=== PATIENT | female | born 1995 | race Two or more races ===

== ENCOUNTER → 2021-06-28 | Outpatient (CLI) | payer OTHER ==
[2021-06-28 17:37] LABS: HEMATOCRIT 35.2 % (36.0-47.0); HEMOGLOBIN 11.4 g/dl (12.0-15.5); MEAN CORPUSCULAR HEMOGLOBIN 25.3 pg (27.0-33.0); MEAN CORPUSCULAR HGB CONC 32.4 g/dl (32.0-36.5); MEAN CORPUSCULAR VOLUME 78.2 fl (80.0-96.0); PLATELET COUNT, AUTOMATED 283 10^3/uL (150-450); WHITE BLOOD COUNT 7.3 10^3/uL (4.0-10.0)
[2021-06-28 18:51] LABS: HEPATITIS C VIRUS ABY INDEX 0.1 INDEX (<0.8); HIV 1&2 SCREEN CENTAUR NEGATIVE (NEGATIVE)
[2021-06-28 19:13] LABS: GC DNA AMPLIFICATION NEGATIVE (NEGATIVE)
== END ==
LOC: M PLALAB 15:42
PROVIDERS: ATTEND Advanced Practice Midwife
DX: Z34.81 Encounter for supervision of other normal pregnancy, first trimester (principal)

== ENCOUNTER → 2021-08-31 | Outpatient (CLI) | payer BC, OTHER | LOC: M WHC 13:48 | PROVIDERS: ATTEND Specialist | DX: Z36.2 Encounter for other antenatal screening follow-up (principal); Z3A.19 19 weeks gestation of pregnancy ==

== ENCOUNTER → 2021-09-27 | Outpatient (CLI) | payer BC, OTHER | LOC: M WHC 08:48 | PROVIDERS: ATTEND Specialist | DX: Z36.2 Encounter for other antenatal screening follow-up (principal); Z3A.24 24 weeks gestation of pregnancy ==

== ENCOUNTER → 2021-10-13 | Outpatient (CLI) | payer BC, OTHER | LOC: M WHC 12:56 | PROVIDERS: ATTEND Specialist | DX: Z36.2 Encounter for other antenatal screening follow-up (principal); Z3A.26 26 weeks gestation of pregnancy ==

== ENCOUNTER → 2021-11-10 | Outpatient (CLI) | payer BC, OTHER ==
[2021-11-10 15:54] LABS: HEMATOCRIT 30.9 % (36.0-47.0); MEAN CORPUSCULAR HEMOGLOBIN 27.9 pg (27.0-33.0); MEAN CORPUSCULAR HGB CONC 32.4 g/dl (32.0-36.5); MEAN CORPUSCULAR VOLUME 86.1 fl (80.0-96.0); PLATELET COUNT, AUTOMATED 218 10^3/uL (150-450); RED BLOOD COUNT 3.59 10^6/uL (4.00-5.40); WHITE BLOOD COUNT 10.1 10^3/uL (4.0-10.0)
[2021-11-10 17:00] LABS: GC DNA AMPLIFICATION NEGATIVE (NEGATIVE)
== END ==
LOC: M PLALAB 11-05 07:53
PROVIDERS: ATTEND Specialist
DX: Z34.02 Encounter for supervision of normal first pregnancy, second trimester (principal)

== ENCOUNTER → 2021-11-19 | Outpatient (CLI) | payer BC, OTHER | LOC: M WHC 13:48 | PROVIDERS: ATTEND Obstetrics & Gynecology | DX: Z36.2 Encounter for other antenatal screening follow-up (principal); Z3A.30 30 weeks gestation of pregnancy ==

== ENCOUNTER → 2021-12-17 | Outpatient (REF) | payer BC, OTHER | LOC: M SFHCWAGY 15:12 | PROVIDERS: ATTEND Obstetrics & Gynecology | DX: Z36.85 Encounter for antenatal screening for Streptococcus B (principal) ==

== ENCOUNTER 2022-01-21 13:01 | Inpatient (IN) | payer BC, OTHER ==
[2022-01-21] VITALS (19 sets, daily range): BP systolic 98–167; BP diastolic 54–96
[~2022-01-21] VITALS: Ht 167.6 cm; Wt 88.0 kg
[2022-01-21] MEDS ORDERED: PRENTAB9 PO (15:45)
[2022-01-21] MEDS ORDERED: HOME MED LIST COMPLETE! XX SCH (15:45)
[2022-01-21] MEDS ORDERED: METHYLERGONOVINE MALEATE 0.2 MG/ML VIAL (J2210) IM PRN (16:10)
[2022-01-21] MEDS ORDERED: LIDOCAINE 1% MDV 20ML VIAL INFIL PRN (16:10)
[2022-01-21] MEDS ORDERED: OXYTOCIN DRIP 30 UNITS in IV 1 EA IV PRN (16:10)
[2022-01-21] MEDS ORDERED: TRANEXAMIC ACID INJection 1,000 MG in NS 100 ML IV PRN (16:10)
[2022-01-21 16:36] LABS: HEMATOCRIT 35.8 % (36.0-47.0); HEMOGLOBIN 11.6 g/dl (12.0-15.5); MEAN CORPUSCULAR HEMOGLOBIN 26.6 pg (27.0-33.0); MEAN CORPUSCULAR HGB CONC 32.4 g/dl (32.0-36.5); MEAN CORPUSCULAR VOLUME 82.1 fl (80.0-96.0); PLATELET COUNT, AUTOMATED 218 10^3/uL (150-450); RED BLOOD COUNT 4.36 10^6/uL (4.00-5.40); WHITE BLOOD COUNT 12.5 10^3/uL (4.0-10.0)
[2022-01-21] MEDS ORDERED: LR 500 ML IV PRN (18:10)
[2022-01-21] MEDS ORDERED: diphenhydrAMINE 50MG/ML VIAL IV PRN (18:10)
[2022-01-21] MEDS ORDERED: ONDANSETRON 4MG 2ML VIAL IV PRN (18:10)
[2022-01-21] MEDS ORDERED: ePHEDrine SULFATE 25 MG/5 ML(5MG/ML) SYRINGE IVP PRN (18:10)
[2022-01-21] MEDS ORDERED: NALOXONE INJ 0.4MG/1ML VIAL (J2310 PER 1MG) IV PRN (18:10)
[2022-01-21] MEDS ORDERED: EPIDURAL/PCA KEYS XX PRN (18:10)
[2022-01-21] MEDS ORDERED: FENTANYL/ROPIVACAINE/NACL BAG 100 ML EPIDURAL SCH (18:10)
[2022-01-22] VITALS (11 sets, daily range): BP systolic 121–159; BP diastolic 61–90
[2022-01-22 02:43] LABS: CORD GAS ABE V -4.9; CORD GAS HCO3 V 19.9 MEQ/L; CORD GAS O2 SAT V 75.9 %; CORD GAS PCO2 V 37.1 mmHg; CORD GAS PH V 7.348 UNITS; CORD GAS PO2 V 30.7 mmHg; CORD GAS SBC V 19.9 MEQ/L; CORD GAS TCO2 V 21.1 MEQ/L
[2022-01-22 02:44] LABS: CORD GAS HCO3 A 20.9 MEQ/L; CORD GAS O2 SAT A 84.4 %; CORD GAS PH A 7.238 UNITS; CORD GAS PO2 A 41.5 mmHg; CORD GAS SBC A 18.6 MEQ/L; CORD GAS TCO2 A 22.4 MEQ/L
[2022-01-22] MEDS ORDERED: MOM 30ML SUSPENSION UDC PO PRN (03:15)
[2022-01-22] MEDS ORDERED: RHOGAM 300 MCG (1500 IU) INJ (J2790) IM SCH (03:15)
[2022-01-22] MEDS ORDERED: METHYLERGONOVINE MALEATE 0.2 MG TAB PO PRN (03:15)
[2022-01-22] MEDS ORDERED: ANUSOL HC CREAM 30GM TOP PRN (03:15)
[2022-01-22] MEDS ORDERED: IBUPROFEN 600MG TAB PO PRN (03:15)
[2022-01-22] MEDS ORDERED: ACETAMINOPHEN 500 MG TAB PO PRN (03:15)
[2022-01-22] MEDS ORDERED: DIBUCAINE 1% OINTMENT 30GM TOP PRN (03:15)
[2022-01-22] MEDS ORDERED: ACETAMINOPHEN TAB 650MG DOSE (2X325MG) PO PRN (03:15)
[2022-01-22] MEDS ORDERED: OXYTOCIN DRIP 30 UNITS in IV 1 EA IV SCH (03:15)
[2022-01-22] MEDS: PRENATAL VITAMINS CHEWABLE TABLET PO SCH (08:57)
[2022-01-22] MEDS: DOCUSATE SODIUM 100MG CAPSULE PO PRN (18:24)
[2022-01-23 06:00] VITALS: BP 115/73
[2022-01-23] MEDS: PRENATAL VITAMINS CHEWABLE TABLET PO SCH (08:59)
[2022-01-23] MEDS: IBUPROFEN 800 MG TAB PO PRN ×2 (09:00→20:52)
[2022-01-23 18:00] VITALS: BP 119/57
[2022-01-23] MEDS: DOCUSATE SODIUM 100MG CAPSULE PO PRN (20:53)
[2022-01-24 05:38] VITALS: BP 108/64
[2022-01-24] MEDS ORDERED: MEASLES,MUMPS,RUBELLA VACCINE INJ (MMR-II) (90707) SC.IMMUN ONE (09:00)
[2022-01-24] MEDS: PRENATAL VITAMINS CHEWABLE TABLET PO SCH (10:23)
[2022-01-24] MEDS ORDERED: ACET-683 PO (11:56)
[2022-01-24] MEDS ORDERED: IBUP80TA PO (11:56)
== END 2022-01-24 14:15 | disposition home or self-care (01) | DRG 560 ==
LOC: M LDO 13:01 → M LDI 15:30 → M OBS 01-22 05:06
PROVIDERS: ADMIT Obstetrics & Gynecology; ATTEND Obstetrics & Gynecology
PROC: 10D07Z6 Extraction of Products of Conception, Vacuum, Via Natural or Artificial Opening (ICD-10-PCS; principal; 2022-01-22)
DX: O48.0 Post-term pregnancy (principal); O75.81 Maternal exhaustion complicating labor and delivery; Z3A.40 40 weeks gestation of pregnancy; Z37.0 Single live birth

== ENCOUNTER → 2023-12-05 | Outpatient (CLI) | payer BC ==
[~2023-12-05] MED LIST: ACET-683 PO; IBUP80TA PO; PRENTAB9 PO
[2023-12-05 14:30] LABS: HEMATOCRIT 37.2 % (36.0-47.0); MEAN CORPUSCULAR HEMOGLOBIN 25.8 pg (27.0-33.0); MEAN CORPUSCULAR HGB CONC 32.3 g/dl (32.0-36.5); PLATELET COUNT, AUTOMATED 268 10^3/uL (150-450); RED BLOOD COUNT 4.65 10^6/uL (4.00-5.40); WHITE BLOOD COUNT 7.5 10^3/uL (4.0-10.0)
[2023-12-05 15:36] LABS: HIV 1&2 SCREEN NEGATIVE (NEGATIVE)
[2023-12-05 15:43] LABS: HEPATITIS C VIRUS ABY INDEX 0.03 INDEX (<0.8)
== END ==
LOC: M PLALAB 10:30
PROVIDERS: ATTEND Advanced Practice Midwife
DX: Z34.81 Encounter for supervision of other normal pregnancy, first trimester (principal)

== ENCOUNTER → 2023-12-27 | Outpatient (CLI) | payer BC | LOC: M WHC 13:01 | PROVIDERS: ATTEND Advanced Practice Midwife | DX: N63.11 Unspecified lump in the right breast, upper outer quadrant (principal) ==

== ENCOUNTER → 2024-02-09 | Outpatient (CLI) | payer BC | LOC: M WHC 07:58 | PROVIDERS: ATTEND Obstetrics & Gynecology | DX: Z34.92 Encounter for supervision of normal pregnancy, unspecified, second trimester (principal) ==

== ENCOUNTER → 2024-03-21 | Outpatient (CLI) | payer BC, OTHER ==
[2024-03-21 13:38] LABS: HEMATOCRIT 33.5 % (36.0-47.0); HEMOGLOBIN 10.9 g/dl (12.0-15.5); MEAN CORPUSCULAR HEMOGLOBIN 27.3 pg (27.0-33.0); MEAN CORPUSCULAR HGB CONC 32.5 g/dl (32.0-36.5); PLATELET COUNT, AUTOMATED 220 10^3/uL (150-450); RED BLOOD COUNT 3.99 10^6/uL (4.00-5.40); WHITE BLOOD COUNT 8.9 10^3/uL (4.0-10.0)
[2024-03-21 14:00] LABS: GLUCOSE CHALLENGE TEST 1 HOUR 61 MG/DL (LESS THAN 140)
[2024-03-21 14:35] LABS: HIV 1&2 SCREEN NEGATIVE (NEGATIVE)
[2024-03-21 14:42] LABS: HEPATITIS C VIRUS ABY INDEX < 0.02 INDEX (<0.8)
[2024-03-21 14:57] LABS: GC DNA AMPLIFICATION NEGATIVE (NEGATIVE)
== END ==
LOC: M PLALAB 10:24
PROVIDERS: ATTEND Nurse Practitioner Family
DX: Z34.82 Encounter for supervision of other normal pregnancy, second trimester (principal)

== ENCOUNTER → 2024-05-30 | Outpatient (REF) | payer OTHER, BC | LOC: M SFHCWAGY 16:57 | PROVIDERS: ATTEND Obstetrics & Gynecology | DX: Z36.89 Encounter for other specified antenatal screening (principal); Z3A.36 36 weeks gestation of pregnancy ==

== ENCOUNTER 2024-06-30 12:42 | Inpatient (IN) | payer BC, OTHER ==
[~2024-06-30] VITALS: Ht 167.6 cm; Wt 94.4 kg
[2024-06-30] VITALS (7 sets, daily range): BP systolic 108–131; BP diastolic 57–83
[2024-06-30] MEDS ORDERED: HOME MED LIST COMPLETE! XX SCH (13:20)
[2024-06-30 13:57] LABS: HEMATOCRIT 32.2 % (36.0-47.0); HEMOGLOBIN 10.3 g/dl (12.0-15.5); MEAN CORPUSCULAR HEMOGLOBIN 25.4 pg (27.0-33.0); MEAN CORPUSCULAR VOLUME 79.3 fl (80.0-96.0); PLATELET COUNT, AUTOMATED 231 10^3/uL (150-450); RED BLOOD COUNT 4.06 10^6/uL (4.00-5.40); WHITE BLOOD COUNT 7.9 10^3/uL (4.0-10.0)
[2024-06-30] MEDS ORDERED: LIDOCAINE 1% MDV 20ML VIAL INFIL PRN (14:30)
[2024-06-30] MEDS ORDERED: METHYLERGONOVINE MALEATE 0.2MG/ML 1ML VIAL IM PRN (14:30)
[2024-06-30] MEDS ORDERED: OXYTOCIN DRIP 30 UNITS in IV 1 EA IV PRN (14:30)
[2024-06-30] MEDS: miSOPROStol 50MCG 1/2 TABLET PO SCH (14:45)
[2024-06-30 14:52] LABS: HIV 1&2 SCREEN NEGATIVE (NEGATIVE)
[2024-06-30 15:00] LABS: HEPATITIS C VIRUS ABY INDEX < 0.02 INDEX (<0.8)
[2024-06-30] MEDS: BUTORPHANOL 2 MG/ML 1ML VIAL IV ONE (23:10)
[2024-06-30] MEDS: PROMETHAZINE 25MG/ML 1ML VIAL IV ONE (23:10)
[2024-07-01] VITALS (16 sets, daily range): BP systolic 106–136; BP diastolic 53–87; O2SAT 96–98
[2024-07-01] MEDS ORDERED: ePHEDrine SULFATE 25 MG/5 ML(5MG/ML) SYRINGE IVP PRN (01:35)
[2024-07-01] MEDS ORDERED: ONDANSETRON 4MG 2ML VIAL IV PRN (01:35)
[2024-07-01] MEDS ORDERED: LR 500 ML IV PRN (01:35)
[2024-07-01] MEDS ORDERED: EPIDURAL/PCA KEYS XX PRN (01:35)
[2024-07-01] MEDS ORDERED: diphenhydrAMINE 50MG/ML VIAL IV PRN (01:35)
[2024-07-01] MEDS ORDERED: NALOXONE INJ 0.4MG/1ML VIAL IV PRN (01:35)
[2024-07-01] MEDS: FENTANYL/ROPIVACAINE/NACL BAG 100 ML EPIDURAL SCH (02:11)
[2024-07-01] MEDS: OXYTOCIN DRIP 30 UNITS in IV 1 EA IV SCH ×2 (02:35→03:15)
[2024-07-01] MEDS: LR 1,000 ML IV ONE (02:35)
[2024-07-01] MEDS ORDERED: ANUSOL HC CREAM 30GM TOP PRN (03:15)
[2024-07-01] MEDS ORDERED: CALCIUM CARBONATE 500 MG CHEW U/D PO PRN (03:15)
[2024-07-01] MEDS ORDERED: METHYLERGONOVINE MALEATE 0.2 MG TAB PO PRN (03:15)
[2024-07-01] MEDS ORDERED: ACETAMINOPHEN 325 MG TAB PO PRN (03:15)
[2024-07-01] MEDS ORDERED: ACETAMINOPHEN 500 MG TAB PO PRN (03:15)
[2024-07-01] MEDS ORDERED: IBUPROFEN 600MG TAB PO PRN (03:15)
[2024-07-01] MEDS ORDERED: MOM 30ML SUSPENSION UDC PO PRN (03:15)
[2024-07-01] MEDS ORDERED: RHOGAM 300MCG (1500IU) INJ IM SCH (03:15)
[2024-07-01] MEDS: DOCUSATE SODIUM 100MG CAPSULE PO PRN (09:21)
[2024-07-01] MEDS: PRENATAL VITAMINS CHEWABLE TABLET PO SCH (09:21)
[2024-07-01] MEDS: IBUPROFEN 800 MG TAB PO PRN (16:23)
[2024-07-01] MEDS: DIBUCAINE 1% OINTMENT 30GM TOP PRN (16:23)
[2024-07-02 06:04] VITALS: BP 123/77; O2SAT 100
[2024-07-02] MEDS: BOOSTRIX VACCINE (TETANUS/DIPHTH/ACEL. PERTUSSIS) 0.5ML SYR IM.IMMUN ONE (08:06)
[2024-07-02] MEDS ORDERED: IBUP-1022 PO (13:56)
[2024-07-02] MEDS ORDERED: ACET-683 PO (13:56)
[2024-07-03] MEDS ORDERED: MEASLES,MUMPS,RUBELLA VACCINE INJ (MMR-II) SC.IMMUN ONE (09:00)
[2024-07-03] MEDS ORDERED: BOOSTRIX VACCINE (TETANUS/DIPHTH/ACEL. PERTUSSIS) 0.5ML SYR IM.IMMUN ONE (09:00)
== END 2024-07-02 14:16 | disposition home or self-care (01) | DRG 560 ==
LOC: M LDI 12:42 → M OBS 07-01 05:55
PROVIDERS: ADMIT Obstetrics & Gynecology; ATTEND Obstetrics & Gynecology
PROC: 3E033VJ Introduction of Other Hormone into Peripheral Vein, Percutaneous Approach (ICD-10-PCS; 2024-06-30)
PROC: 10E0XZZ Delivery of Products of Conception, External Approach (ICD-10-PCS; principal; 2024-07-01)
DX: O48.0 Post-term pregnancy (principal); Z37.0 Single live birth; Z3A.40 40 weeks gestation of pregnancy

== ENCOUNTER → 2025-01-17 | Outpatient (CLI) | payer BC ==
[~2025-01-17] MED LIST changes: +IBUP600T42 PO
[2025-01-17 14:49] LABS: PLATELET COUNT, AUTOMATED 291 10^3/uL (150-450)
[2025-01-17 15:17] LABS: Trichomonas vaginalis (AMP) NOT DETECTED (NEGATIVE)
[2025-01-17 15:28] LABS: HIV 1&2 SCREEN NEGATIVE (NEGATIVE)
[2025-01-17 15:37] LABS: HEPATITIS C VIRUS ABY INDEX < 0.02 INDEX (<0.8)
[2025-01-17 15:41] LABS: GC DNA AMPLIFICATION NEGATIVE (NEGATIVE)
== END ==
LOC: M PLALAB 10:44
PROVIDERS: ATTEND Advanced Practice Midwife
DX: Z34.81 Encounter for supervision of other normal pregnancy, first trimester (principal)